=== PATIENT | male | born 1945 | race Caucasian/White ===

== ENCOUNTER 2017-01-14 11:37 | Inpatient (IN) | payer MEDICARE, OTHER ==
[2017-01-14] MEDS ORDERED: NORMAL SALINE 1000 ML 1,000 ML IV ONE ×2 (12:06→17:11)
[2017-01-14] MEDS ORDERED: ACETAMINOPHEN 325 MG TABLET PO ONE (12:06)
[2017-01-14 12:24] LABS: ABSOLUTE LYMPHOCYTES (AUTO) 0.9 10^3/uL (0.5-4.7); ABSOLUTE MONOCYTES (AUTO) 0.7 10^3/uL (0.1-1.4); ABSOLUTE NEUT (AUTO) 5.5 10^3/uL (1.7-8.2); BASOPHILS % (AUTO) 0.3 % (0-2); EOSINOPHILS % (AUTO) 0.1 % (0-6); HEMATOCRIT 40.1 % (37.9-51.0); HEMOGLOBIN 13.3 g/dL (13.5-17.0); HGB HCT DIFFERENCE -0.2; MEAN CORPUSCULAR HEMOGLOBIN 30.3 pg (27.0-33.4); MEAN CORPUSCULAR VOLUME 92 fl (80-97); RED BLOOD COUNT 4.37 10^6/uL (4.35-5.55); RED CELL DISTRIBUTION WIDTH 13.9 % (11.5-14.0); SEGMENTED NEUTROPHILS % (AUTO) 76.6 % (42-78); VENOUS BLOOD BASE EXCESS -7.7 mmol/L; VENOUS BLOOD HCO3 19.5 mmol/L (20-32); VENOUS BLOOD PCO2 45.8 mmHg (35-63); VENOUS BLOOD PH 7.25 (7.30-7.42); WHITE BLOOD COUNT 7.2 10^3/uL (4.0-10.5)
[2017-01-14 12:33] LABS: PROTHROMBIN TIME 12.4 SEC (11.4-15.4)
[2017-01-14 12:45] LABS: ALANINE AMINOTRANSFERASE 27 U/L (21-72); ALBUMIN 3.8 g/dL (3.5-5.0); ALKALINE PHOSPHATASE 69 U/L (38-126); ANION GAP 15 (5-19); ASPARTATE AMINO TRANSFERASE 22 U/L (17-59); BILIRUBIN,DIRECT 0.3 mg/dL (0.0-0.4); BILIRUBIN,TOTAL 0.4 mg/dL (0.2-1.3); BLOOD UREA NITROGEN 46 mg/dL (7-20); CARBON DIOXIDE 20 mmol/L (22-30); CHLORIDE 108 mmol/L (98-107); CREATININE RESULT 2.56 mg/dL (0.52-1.25); GLUCOSE 131 mg/dL (75-110); POTASSIUM 4.7 mmol/L (3.6-5.0); SODIUM 142.8 mmol/L (137-145); TOTAL PROTEIN 6.5 g/dL (6.3-8.2)
--- NOTE | 2017-01-14 13:35 | EKG REPORT ---
SEVERITY:- ABNORMAL ECG - ATRIAL-SENSED VENTRICULAR-PACED RHYTHM : Confirmed by: Reid Klein MD 14-Jan-2017 13:34:06
[2017-01-14 14:24] LABS: APPEARANCE,URINE CLOUDY; BILIRUBIN,URINE NEGATIVE (NEGATIVE); GLUCOSE, URINE NEGATIVE (NEGATIVE); KETONES,URINE NEGATIVE (NEGATIVE); LEUKOCYTE ESTERASE,URINE NEGATIVE (NEGATIVE); NITRITE,URINE NEGATIVE (NEGATIVE); PROTEIN,URINE 30 mg/dL (NEGATIVE); URINE SPECIFIC GRAVITY 1.018; UROBILINOGEN,URINE NEGATIVE mg/dL (<2.0)
--- NOTE | 2017-01-14 15:38 | ER Document Report ---
ED General - General Mode of Arrival: Ambulatory Information source: Patient TRAVEL OUTSIDE OF THE [place] IN LAST 30 DAYS: No - HPI Patient complains to provider of: Generalized weakness, cough, and fever Onset: Last week Associated symptoms: Other - see notes above <ROSALEE SCALES - Last Filed: 01/14/17 18:39> <VLADISLAV EPPERSON - Last Filed: 01/14/17 20:32> - General Chief Complaint: Diarrhea Stated Complaint: FEVER Notes: 71 year old male with history of sudden cardiac (2004; with a pacemaker and defibrillator) presents to the ED complaining of generalized weakness, nonproductive cough, fever (101F 2 nights ago), dehydration, loss of appetite, and diarrhea (no blood) which started 3 days ago. Patient reports that he has chronic diarrhea, but it has been worsening over the last 4 or 5 days. Patient denies any abdominal pain, chest pain, or shortness of breath. Patient denies history of IBS or diabetes mellitus. states that she has been recovering from bronchitis and an upper respiratory infection and is concerned that the patient might of caught something from her. Patient's quarter section ironer is Dr. Klein and primary care provider is Fatou Pastor at [facility]. (ROSALEE SCALES) - Related Data Allergies/Adverse Reactions: Tetanus Vaccines and Toxoid [Tetanus] Allergy (Intermediate, Verified 01/14/17 11:49) Home Medications: Current Home Medications Allopurinol [Allopurinol] 100 mg PO DAILY 01/14/17 [History] Carvedilol [Carvedilol] 25 mg PO BIDBS 01/14/17 [History] Digoxin [Digitek] 125 mcg PO DAILY 01/14/17 [History] Lisinopril [Lisinopril] 10 mg PO DAILY 01/14/17 [History] Rosuvastatin Calcium [Crestor 10 mg Tablet] 10 mg PO DAILY 01/14/17 [History] Spironolactone [Spironolactone] 25 mg PO DAILY 01/14/17 [History] Past Medical History - General Information source: Patient - Social History Smoking Status: Current Every Day Smoker Chew tobacco use (# tins/day): No Frequency of alcohol use: None Drug Abuse: None Family History: Reviewed & Not Pertinent Patient has suicidal ideation: No Patient has homicidal ideation: No - Past Medical History Cardiac Medical History: Reports: Other - Sudden cardiac in 2004 ( implanted pacemaker/defibrillator) Past Surgical History: Reports: Hx Cardiac Surgery - pacemaker placement - Immunizations Hx Diphtheria, Pertussis, Tetanus Vaccination: No Hx Pneumococcal Vaccination: 09/16/10 <ROSALEE SCALES - Last Filed: 01/14/17 18:39> Review of Systems - Review of Systems Constitutional: See HPI, Fever, Weakness EENT: No symptoms reported Cardiovascular: No symptoms reported. denies: Chest pain Respiratory: See HPI, Cough. denies: Short of breath Gastrointestinal: No symptoms reported, Diarrhea, Poor appetite. denies: Abdominal pain Genitourinary: No symptoms reported Male Genitourinary: No symptoms reported Musculoskeletal: No symptoms reported Skin: No symptoms reported Hematologic/Lymphatic: No symptoms reported Neurological/Psychological: No symptoms reported <ROSALEE SCALES - Last Filed: 01/14/17 18:39> Physical Exam <LOYDAWILBURROSALEE - Last Filed: 01/14/17 18:39> <VLADISLAV EPPERSON - Last Filed: 01/14/17 20:32> - Vital signs Vitals: Temp Pulse Resp BP Pulse Ox 97.5 F 57 L 16 77/30 L 97 01/14/17 11:53 01/14/17 11:53 01/14/17 11:53 01/14/17 11:53 01/14/17 11:53 - Notes Notes: GENERAL: Alert, interacts well. No acute distress. HEAD: Normocephalic, atraumatic. EYES: Pupils equal, round, and reactive to light. Extraocular movements intact. ENT: Oral mucosa moist, tongue midline. NECK: Full range of motion. Supple. Trachea midline. LUNGS: Clear to auscultation bilaterally, no wheezes, rales, or rhonchi. No respiratory distress. Patient has a wet sounding cough upon examination. HEART: Regular rate and rhythm. No murmurs, gallops, or rubs. Defibrillator in good position. ABDOMEN: Soft, non-tender. Non-distended. Bowel sounds present in all 4 quadrants. RECTAL: No blood, melena, or stool is visualized. EXTREMITIES: Moves all 4 extremities spontaneously. No edema, radial and dorsalis pedis pulses 2/4 bilaterally. No cyanosis. NEUROLOGICAL: Alert and oriented x3. Normal speech. PSYCH: Normal affect, normal mood. SKIN: Warm, dry, normal turgor. No rashes or lesions noted. (ROSALEE SCALSE) Course - Laboratory Result Diagrams: 01/14/17 12:05 01/14/17 12:05 - Diagnostic Test Radiology reviewed: Image reviewed, Reports reviewed - Chest x-ray impression: Somewhat limited study. No acute radiographic finding in the chest. - Consults Dr. Wooten Time consulted: 18:14 <ROSALEE SCALES - Last Filed: 01/14/17 18:39> - Laboratory Result Diagrams: 01/14/17 12:05 01/14/17 12:05 <VLADISLAV EPPERSON - Last Filed: 01/14/17 20:32> - Re-evaluation Re-evalutation: 01/14/17 20:31 CBC does not show any leukocytosis, coags normal, venous blood gas is acidotic with pH of 7.25, this appears metabolic in nature with a bicarbonate of 19.5, likely due to GI losses, chemistries show acute renal failure with BUN of 46 and creatinine of 2.56, for this reason I have requested admission for this patient by the hospitalist, patient does not have any elevated lactic acid, no evidence of sepsis at this time, urinalysis grossly unremarkable, Hemoccult is negative, C. difficile toxin is negative, flu a and B are negative, CT scan of the abdomen and pelvis show renal mass which was discussed with family and they understand the need to follow up as an outpatient for further imaging to rule out malignancy, it also shows an old aortic dissection that appears to of calcified and is healing well, there is a small amount of edema and swelling of the intestine that may represent inflammatory bowel disease. At present I feel the patient's symptoms are most likely coming from an infectious diarrhea etiology, patient will be treated with Peggy and Lee, Dr. Wooten the hospitalist has agreed to admit the patient to her service for dehydration causing acute renal failure and ongoing diarrhea persisted in the emergency department. Patient has responded nicely to 2 L of fluid and his hypotension is resolving. (VLADISLAV EPPERSON) - Vital Signs Vital signs: Temp Pulse Resp BP Pulse Ox 97.5 F 57 L 12 93/50 L 94 01/14/17 11:53 01/14/17 11:53 01/14/17 15:00 01/14/17 14:51 01/14/17 15:00 - Laboratory Laboratory results interpreted by me: 01/14/17 01/14/17 01/14/17 12:05 12:05 12:05 Hgb 13.3 L Plt Count 133 L VBG pH 7.25 L VBG HCO3 19.5 L Chloride 108 H Carbon Dioxide 20 L BUN 46 H Creatinine 2.56 H Est GFR ( Amer) 30 L Est GFR (Non-Af Amer) 25 L Glucose 131 H Urine Protein 01/14/17 14:15 Hgb Plt Count VBG pH VBG HCO3 Chloride Carbon Dioxide BUN Creatinine Est GFR ( Amer) Est GFR (Non-Af Amer) Glucose Urine Protein 30 H - Consults Dr. Wooten Reason for consultation: 01/14/17 18:14 Patient was discussed with Dr. Wooten and states she will admit the patient to IMCU and to start him on Cipro and Flagyl. (ROSALEE SCALES) Critical Care Note <ROSALEE SCALES - Last Filed: 01/14/17 18:39> - Critical Care Note Total time excluding time spent on procedures (mins): 40 <VLADISLAV EPPERSON - Last Filed: 01/14/17 20:32> - Critical Care Note Comments: Addressing the severe persistent hypotension. (VLADISLAV EPPERSON) Discharge <ROSALEE SCALES - Last Filed: 01/14/17 18:39> - Discharge Admitting Provider: Anitraist - Je Unit Admitted: IMCU <VLADISLAV EPPERSON - Last Filed: 01/14/17 20:32> - Discharge Clinical Impression: Dehydration Diarrhea Qualifiers: Diarrhea type: presumed infectious Qualified Code(s): A09 - Infectious gastroenteritis and colitis, unspecified Acute renal failure Qualifiers: Acute renal failure type: unspecified Qualified Code(s): N17.9 - Acute kidney failure, unspecified Condition: Serious Disposition: ADMITTED INPATIENT Scribe Attestation: 01/14/17 20:32 I personally performed the services described in the documentation, reviewed and edited the documentation which was dictated to the scribe in my presence, and it accurately records my words and actions. (VLADISLAV EPPERSON) Scribe Documentation - Scribe Written by Scribe:: Moraima Trevizo, 01/14/2017 1546 acting as scribe for :: Kloswaldoek <ROSALEE SCALES - Last Filed: 01/14/17 18:39>
[2017-01-14] MEDS ORDERED: METRONIDAZOLE 500 MG/NS RTU 100 ML IV ONE (18:19)
[2017-01-14] MEDS ORDERED: NORMAL SALINE 1000 ML 1,000 ML IV PRN (18:43)
[2017-01-14] MEDS ORDERED: ONDANSETRON HCL INJ/PF 4 MG/2 ML SDV IV PRN (18:44)
--- NOTE | 2017-01-14 18:55 | PDOC H&P ---
History of Present Illness Admission Date/PCP: 01/14/2017 Manisha ZARAGOZA Patient complains of: Diarrhea History of Present Illness: EASTON BALTAZAR is a 71 year old male with history of sudden cardiac (2004; with a pacemaker and defibrillator) presents to the ED complaining of generalized weakness, nonproductive cough, fever (101F 2 nights ago), dehydration, loss of appetite, and diarrhea (no blood ) which started 3 days ago. Patient reports that he has chronic diarrhea, but it has been worsening over the last 4 or 5 days. Patient denies any abdominal pain, chest pain, or shortness of breath. Patient denies history of IBS or diabetes mellitus. states that she has been recovering from bronchitis and an upper respiratory infection and is concerned that the patient might of caught something from her. Patient's computer language coder is Dr. Klein and primary care provider is Fatou Pastor at [facility]. Upon evaluation in the emergency room patient was diagnosed of acute colitis and acute renal failure he was treated with IV fluids Cipro and Flagyl and was subsequently admitted to [facility] for further evaluation and care Past Medical History Cardiac Medical History: Reports: Congestive Heart Failure - Cardiomyopathy status post defibrillator Patient is treated by , Coronary Artery Disease , Other - Sudden cardiac in 2004 (implanted pacemaker/defibrillator) Denies: Myocardial Infarction, Hypertension Pulmonary Medical History: Denies: Asthma, Bronchitis, Chronic Obstructive Pulmonary Disease (COPD), Pneumonia Neurological Medical History: Denies: Seizures Musculoskeltal Medical History: Denies: Arthritis Hematology: Denies: Anemia Past Surgical History Past Surgical History: Reports: Other - Pacer defibrillator implanted in 2004 Social History Information Source: Patient Lives with: Family Smoking Status: Current Every Day Smoker Frequency of Alcohol Use: None Hx Recreational Drug Use: No Drugs: None - Advance Directive Resuscitation Status: Full Code Surrogate healthcare decision maker:: His Frannie Family History Family History: CAD Parental Family History Reviewed: Yes Children Family History Reviewed: Yes Sibling(s) Family History Reviewed.: Yes Medication/Allergy Home Medications: Allopurinol [Allopurinol] 100 mg PO DAILY 01/14/17 Carvedilol [Carvedilol] 25 mg PO BIDBS 01/14/17 Digoxin [Digitek] 125 mcg PO DAILY 01/14/17 Lisinopril [Lisinopril] 10 mg PO DAILY 01/14/17 Rosuvastatin Calcium [Crestor 10 mg Tablet] 10 mg PO DAILY 01/14/17 Spironolactone [Spironolactone] 25 mg PO DAILY 01/14/17 Allergies/Adverse Reactions: Tetanus Vaccines and Toxoid [Tetanus] Allergy (Intermediate, Verified 01/14/17 11:49) Review of Systems Constitutional: PRESENT: chills, fever(s), weight loss. ABSENT: headache(s), weight gain Eyes: ABSENT: visual disturbances Ears: ABSENT: hearing changes Cardiovascular: ABSENT: chest pain, dyspnea on exertion, edema, orthropnea, palpitations Respiratory: ABSENT: cough, hemoptysis Gastrointestinal: PRESENT: as per HPI, abdominal pain, diarrhea, nausea. ABSENT : constipation, hematemesis, hematochezia, vomiting Genitourinary: ABSENT: dysuria, hematuria Musculoskeletal: ABSENT: joint swelling Integumentary: ABSENT: rash, wounds Neurological: ABSENT: abnormal gait, abnormal speech, confusion, dizziness, focal weakness, syncope Psychiatric: ABSENT: anxiety, depression, homidical ideation, suicidal ideation Endocrine: ABSENT: cold intolerance, heat intolerance, polydipsia, polyuria Hematologic/Lymphatic: ABSENT: easy bleeding, easy bruising Physical Exam Vital Signs: Temp Pulse Resp BP Pulse Ox 97.5 F 57 L 12 93/50 L 94 01/14/17 11:53 01/14/17 11:53 01/14/17 15:00 01/14/17 14:51 01/14/17 15:00 Intake & Output 01/13/17 01/14/17 01/15/17 00:59 00:59 00:59 Weight 70.7 kg General appearance: PRESENT: no acute distress, thin Head exam: PRESENT: atraumatic, normocephalic Eye exam: PRESENT: conjunctiva pink, EOMI, PERRLA. ABSENT: scleral icterus Neck exam: ABSENT: carotid bruit, JVD, lymphadenopathy, thyromegaly Respiratory exam: PRESENT: clear to auscultation jewel. ABSENT: rales, rhonchi, wheezes Cardiovascular exam: PRESENT: RRR. ABSENT: diastolic murmur, rubs, systolic murmur GI/Abdominal exam: PRESENT: normal bowel sounds, soft. ABSENT: distended, guarding, mass, organolmegaly, rebound, tenderness Extremities exam: PRESENT: full ROM. ABSENT: calf tenderness, clubbing, pedal edema Neurological exam: PRESENT: alert, awake, oriented to person, oriented to place , oriented to time, oriented to situation, CN II-XII grossly intact. ABSENT: motor sensory deficit Psychiatric exam: PRESENT: appropriate affect Skin exam: PRESENT: dry, intact, warm. ABSENT: cyanosis, rash Results Laboratory Results: 01/14/17 12:05 01/14/17 12:05 01/14/17 01/14/17 01/14/17 12:05 12:05 12:05 WBC 7.2 RBC 4.37 Hgb 13.3 L Hct 40.1 MCV 92 MCH 30.3 MCHC 33.0 RDW 13.9 Plt Count 133 L Seg Neutrophils % 76.6 Lymphocytes % 13.0 Monocytes % 10.0 Eosinophils % 0.1 Basophils % 0.3 Absolute Neutrophils 5.5 Absolute Lymphocytes 0.9 Absolute Monocytes 0.7 Absolute Eosinophils 0.0 Absolute Basophils 0.0 VBG pH 7.25 L VBG pCO2 45.8 VBG HCO3 19.5 L VBG Base Excess -7.7 Sodium 142.8 Potassium 4.7 Chloride 108 H Carbon Dioxide 20 L Anion Gap 15 BUN 46 H Creatinine 2.56 H Est GFR ( Amer) 30 L Est GFR (Non-Af Amer) 25 L Glucose 131 H Lactic Acid Calcium 9.0 Total Bilirubin 0.4 AST 22 ALT 27 Alkaline Phosphatase 69 Total Protein 6.5 Albumin 3.8 Lipase Urine Color Urine Appearance Urine pH Ur Specific Moodus Urine Protein Urine Glucose (UA) Urine Ketones Urine Blood Urine Nitrite Ur Leukocyte Esterase Urine WBC (Auto) Urine RBC (Auto) Stool Occult Blood 01/14/17 01/14/17 01/14/17 12:05 12:20 14:15 WBC RBC Hgb Hct MCV MCH MCHC RDW Plt Count Seg Neutrophils % Lymphocytes % Monocytes % Eosinophils % Basophils % Absolute Neutrophils Absolute Lymphocytes Absolute Monocytes Absolute Eosinophils Absolute Basophils VBG pH VBG pCO2 VBG HCO3 VBG Base Excess Sodium Potassium Chloride Carbon Dioxide Anion Gap BUN Creatinine Est GFR ( Amer) Est GFR (Non-Af Amer) Glucose Lactic Acid Calcium Total Bilirubin AST ALT Alkaline Phosphatase Total Protein Albumin Lipase 70.0 Urine Color YELLOW Urine Appearance CLOUDY Urine pH 5.0 Ur Specific Moodus 1.018 Urine Protein 30 H Urine Glucose (UA) NEGATIVE Urine Ketones NEGATIVE Urine Blood NEGATIVE Urine Nitrite NEGATIVE Ur Leukocyte Esterase NEGATIVE Urine WBC (Auto) 8 Urine RBC (Auto) 1 Stool Occult Blood NEGATIVE 01/14/17 15:23 WBC RBC Hgb Hct MCV MCH MCHC RDW Plt Count Seg Neutrophils % Lymphocytes % Monocytes % Eosinophils % Basophils % Absolute Neutrophils Absolute Lymphocytes Absolute Monocytes Absolute Eosinophils Absolute Basophils VBG pH VBG pCO2 VBG HCO3 VBG Base Excess Sodium Potassium Chloride Carbon Dioxide Anion Gap BUN Creatinine Est GFR ( Amer) Est GFR (Non-Af Amer) Glucose Lactic Acid 0.8 Calcium Total Bilirubin AST ALT Alkaline Phosphatase Total Protein Albumin Lipase Urine Color Urine Appearance Urine pH Ur Specific Moodus Urine Protein Urine Glucose (UA) Urine Ketones Urine Blood Urine Nitrite Ur Leukocyte Esterase Urine WBC (Auto) Urine RBC (Auto) Stool Occult Blood Impressions: Abdomen/Pelvis CT 01/14/17 00:00 IMPRESSION: 1. There are nonobstructing intrarenal calculi bilaterally. 2. There is a 25 mm rounded mass contiguous with the medial aspect of the left kidney as described. This could represent an exophytic hyperdense cyst. Consider ultrasound to see whether this is cystic. Consider contrast CT to determine enhancement characteristics. 3. There is small amount hyperdense material the distal small bowel that causes minimal artifact. 4. There appears to be mild fatty infiltration of the ileocecal valve. Alternatively, inflammatory bowel disease might have an appearance such as this. Clinical correlation is recommended Chest X-Ray 01/14/17 12:06 IMPRESSION: Somewhat limited study as noted above. NO ACUTE RADIOGRAPHIC FINDING IN THE CHEST. Assessment & Plan - Diagnosis (1) Cardiomyopathy Qualifiers: Cardiomyopathy type: unspecified Qualified Code(s): I42.9 - Cardiomyopathy, unspecified Is this a current diagnosis for this admission?: YesPlan: Patient is status post pacer defibrillator Left ventricular ejection fraction is unknown We will request transcript of recent echocardiogram from Dr. Klein's office (2) Acute renal failure Qualifiers: Acute renal failure type: unspecified Qualified Code(s): N17.9 - Acute kidney failure, unspecified Is this a current diagnosis for this admission?: YesPlan: Likely secondary to dehydration There was no hydronephrosis (4) Diarrhea Qualifiers: Diarrhea type: presumed infectious Qualified Code(s): A09 - Infectious gastroenteritis and colitis, unspecified Is this a current diagnosis for this admission?: YesPlan: we will treat with Cipro and Flagyl C. difficile toxin and culture of the stools were requested - Time Time Spent: Greater than 70 Minutes - Inpatient Certification Based on my medical assessment, after consideration of the patient's comorbidities, presenting symptoms, or acuity I expect that the services needed warrant INPATIENT care.: Yes I certify that my determination is in accordance with my understanding of Medicare's requirements for reasonable and necessary INPATIENT services [42 CFR 412.3e].: Yes
[2017-01-14] MEDS ORDERED: CIPROFLOXACIN 400 MG/D5W RTU 200 ML IV SCH (19:00)
[2017-01-14] MEDS: ATORVASTATIN CALCIUM 20 MG TABLET PO SCH (21:53)
[2017-01-14] MEDS: HEPARIN SOD (PORCINE) 5,000 UNIT/ML 1 ML SYRINGE SUBCUT SCH (21:53)
[2017-01-14] MEDS ORDERED: CIPROFLOXACIN 200 MG/D5W RTU 100 ML IV SCH (22:00)
[2017-01-15] MEDS ORDERED: METRONIDAZOLE 500 MG/NS RTU 100 ML IV SCH
[2017-01-15 05:04] LABS: ABSOLUTE MONOCYTES (AUTO) 0.6 10^3/uL (0.1-1.4); ABSOLUTE NEUT (AUTO) 3.6 10^3/uL (1.7-8.2); BASOPHILS % (AUTO) 0.3 % (0-2); EOSINOPHILS % (AUTO) 0.5 % (0-6); HEMATOCRIT 36.5 % (37.9-51.0); HEMOGLOBIN 12.5 g/dL (13.5-17.0); LYMPHOCYTES % (AUTO) 19.2 % (13-45); MEAN CORPUSCULAR HEMOGLOBIN 30.8 pg (27.0-33.4); MEAN CORPUSCULAR HGB CONC 34.1 g/dL (32.0-36.0); MEAN CORPUSCULAR VOLUME 90 fl (80-97); MONOCYTES % (AUTO) 10.9 % (3-13); RED BLOOD COUNT 4.05 10^6/uL (4.35-5.55); SEGMENTED NEUTROPHILS % (AUTO) 69.1 % (42-78); WHITE BLOOD COUNT 5.2 10^3/uL (4.0-10.5)
[2017-01-15 05:23] LABS: ALANINE AMINOTRANSFERASE 28 U/L (21-72); ALBUMIN 3.1 g/dL (3.5-5.0); ALKALINE PHOSPHATASE 58 U/L (38-126); ANION GAP 12 (5-19); ASPARTATE AMINO TRANSFERASE 19 U/L (17-59); BILIRUBIN,DIRECT 0.3 mg/dL (0.0-0.4); BILIRUBIN,TOTAL 0.4 mg/dL (0.2-1.3); BLOOD UREA NITROGEN 42 mg/dL (7-20); CALCIUM 8.5 mg/dL (8.4-10.2); CARBON DIOXIDE 16 mmol/L (22-30); CHLORIDE 114 mmol/L (98-107); CREATININE RESULT 1.57 mg/dL (0.52-1.25); DIGOXIN 0.81 ng/mL (0.8-2.0); GLUCOSE 81 mg/dL (75-110); POTASSIUM 4.8 mmol/L (3.6-5.0); SODIUM 141.7 mmol/L (137-145); TOTAL PROTEIN 5.8 g/dL (6.3-8.2)
--- NOTE | 2017-01-15 09:04 | PDOC PROGRESS REPORT ---
Subjective Progress Note for:: 01/15/17 Subjective:: Poor appetite. Tolerating liquid diet. Wants to advance to solid food. No fever , vomiting, chest pain. Physical Exam Vital Signs: Temp Pulse Resp BP Pulse Ox 97.8 F 66 18 92/53 L 93 01/15/17 03:43 01/15/17 07:00 01/15/17 03:43 01/15/17 04:00 01/15/17 03:43 Intake & Output 01/14/17 01/15/17 01/16/17 06:59 06:59 06:59 Intake Total 750 Balance 750 Weight 71.1 kg General appearance: PRESENT: no acute distress, well-developed, well-nourished Head exam: PRESENT: atraumatic, normocephalic Eye exam: PRESENT: conjunctiva pink, EOMI, PERRLA. ABSENT: scleral icterus Ear exam: PRESENT: normal external ear exam Mouth exam: PRESENT: moist, tongue midline Neck exam: ABSENT: carotid bruit, JVD, lymphadenopathy, thyromegaly Respiratory exam: PRESENT: clear to auscultation jewel. ABSENT: rales, rhonchi, wheezes Cardiovascular exam: PRESENT: RRR. ABSENT: diastolic murmur, rubs, systolic murmur Pulses: PRESENT: normal dorsalis pedis pul Vascular exam: PRESENT: normal capillary refill GI/Abdominal exam: PRESENT: normal bowel sounds, soft. ABSENT: distended, guarding, mass, organolmegaly, rebound, tenderness Rectal exam: PRESENT: deferred Extremities exam: PRESENT: full ROM. ABSENT: calf tenderness, clubbing, pedal edema Neurological exam: PRESENT: alert, awake, oriented to person, oriented to place , oriented to time, oriented to situation, CN II-XII grossly intact. ABSENT: motor sensory deficit Psychiatric exam: PRESENT: appropriate affect, normal mood. ABSENT: homicidal ideation, suicidal ideation Skin exam: PRESENT: dry, intact, warm. ABSENT: cyanosis, rash Results Laboratory Results: 01/15/17 03:55 01/15/17 03:55 01/15/17 01/15/17 03:55 03:55 WBC 5.2 RBC 4.05 L Hgb 12.5 L Hct 36.5 L MCV 90 MCH 30.8 MCHC 34.1 RDW 14.0 Plt Count 105 L Seg Neutrophils % 69.1 Lymphocytes % 19.2 Monocytes % 10.9 Eosinophils % 0.5 Basophils % 0.3 Absolute Neutrophils 3.6 Absolute Lymphocytes 1.0 Absolute Monocytes 0.6 Absolute Eosinophils 0.0 Absolute Basophils 0.0 Sodium 141.7 Potassium 4.8 Chloride 114 H Carbon Dioxide 16 L Anion Gap 12 BUN 42 H Creatinine 1.57 H Est GFR ( Amer) 53 L Est GFR (Non-Af Amer) 44 L Glucose 81 Calcium 8.5 Total Bilirubin 0.4 AST 19 ALT 28 Alkaline Phosphatase 58 Total Protein 5.8 L Albumin 3.1 L Impressions: Abdomen/Pelvis CT 01/14/17 00:00 IMPRESSION: 1. There are nonobstructing intrarenal calculi bilaterally. 2. There is a 25 mm rounded mass contiguous with the medial aspect of the left kidney as described. This could represent an exophytic hyperdense cyst. Consider ultrasound to see whether this is cystic. Consider contrast CT to determine enhancement characteristics. 3. There is small amount hyperdense material the distal small bowel that causes minimal artifact. 4. There appears to be mild fatty infiltration of the ileocecal valve. Alternatively, inflammatory bowel disease might have an appearance such as this. Clinical correlation is recommended Chest X-Ray 01/14/17 12:06 IMPRESSION: Somewhat limited study as noted above. NO ACUTE RADIOGRAPHIC FINDING IN THE CHEST. Assessment & Plan - Diagnosis (1) Acute renal failure Qualifiers: Acute renal failure type: unspecified Qualified Code(s): N17.9 - Acute kidney failure, unspecified Is this a current diagnosis for this admission?: YesPlan: Improving. Decrease IVF rate due to CHF. Continue to hold lisinopril, aldactone , digoxin. (2) Dehydration Is this a current diagnosis for this admission?: Yes (3) AAA (abdominal aortic aneurysm) Is this a current diagnosis for this admission?: YesPlan: outpatient vascular surgery evaluation (4) Colitis Is this a current diagnosis for this admission?: YesPlan: Cipro/Flagyl. Cdiff negative. (5) Cardiomyopathy Qualifiers: Cardiomyopathy type: unspecified Qualified Code(s): I42.9 - Cardiomyopathy, unspecified Is this a current diagnosis for this admission?: YesPlan: Followed by Dr. Klein as outpatient. H/o AICD due to remote sudden cardiac . - Time Time Spent with patient: 35 or more minutes Anticipated discharge: Home Within: within 24 hours
[2017-01-15] MEDS: ALLOPURINOL 100 MG TABLET PO SCH (09:09)
[2017-01-15] MEDS ORDERED: PANTOPRAZOLE SODIUM 40 MG VIAL IV SCH (10:00)
--- NOTE | 2017-01-15 12:36 | Physician Advisory Note ---
Physician Advisor ProgressNote .: Pursuant to the plan for [facility], I have reviewed the medical record for this patient. Physician Advisor Statement: Dx.s to consider documenting if agree: 1. "Acute metabolic acidosis due to GI losses" Status: 71yo Medicare pt w/CMP, chronic ___ type CHF, evidence of old aortic dissection by CT, chronic diarrhea, remote past sudden cardiac 2004 -> AICD, currently on Dig, Coreg, lisinopril, aldactone, Crestor, Allopurinol - came in 5/1 pm w/generalized weakness, cough, worsened diarrhea x4-5 days, decreased appetite x3 days, fever 2 nights before, feeling dehydrated. Initial BP 77/30 (w/HR only 57 due to effects of Coreg), did respond to 2L IVF to BP 93/50 w/HR 57 still. WBC 7.2, Hgb 13.3, plts 133, bicarb 20, BUN 46, Cr 2.56, pH 7.25, VBG bicarb 19.5, no previous labs to compare. Hemoccult neg, C.diff neg. CT w/renal mass , fatty infilt of ileocecal valve vs IBD. Attending held lisinopril, aldactone, & dig, & started NS @125, IV cipro/flagyl/ PPI. After 1 MN of hospital care & monitoring, pt still w/poor appetite, though wanting to advance diet. MODESTO improving but suspecting not yet back to baseline , especially since Acute Metabolic Acidosis appears worse today. Still relatively hypotensive, still needing IVF - tho' decreasing rate due to risks of putting pt into acute on chr ___ CHF from them. BP still not sufficient to restart dig, renal & fluid status not yet sufficient to restart aldactone & lisinopril. Not yet safe for d/c home. Appropriate for Inpt status. CK
[2017-01-15] MEDS: HEPARIN SOD (PORCINE) 5,000 UNIT/ML 1 ML SYRINGE SUBCUT SCH ×3 (13:23→21:05)
[2017-01-15] MEDS: ATORVASTATIN CALCIUM 20 MG TABLET PO SCH (21:05)
[2017-01-15] MEDS: NORMAL SALINE 1000 ML 1,000 ML IV PRN (22:32)
[2017-01-16] MEDS: HEPARIN SOD (PORCINE) 5,000 UNIT/ML 1 ML SYRINGE SUBCUT SCH (05:06)
[2017-01-16 05:17] LABS: ABSOLUTE LYMPHOCYTES (AUTO) 1.5 10^3/uL (0.5-4.7); ABSOLUTE MONOCYTES (AUTO) 0.7 10^3/uL (0.1-1.4); BASOPHILS % (AUTO) 0.2 % (0-2); HEMATOCRIT 35.8 % (37.9-51.0); HEMOGLOBIN 12.3 g/dL (13.5-17.0); HGB HCT DIFFERENCE 1.1; LYMPHOCYTES % (AUTO) 35.3 % (13-45); MEAN CORPUSCULAR HEMOGLOBIN 30.9 pg (27.0-33.4); MEAN CORPUSCULAR HGB CONC 34.4 g/dL (32.0-36.0); MEAN CORPUSCULAR VOLUME 90 fl (80-97); MONOCYTES % (AUTO) 15.9 % (3-13); RED BLOOD COUNT 3.98 10^6/uL (4.35-5.55); RED CELL DISTRIBUTION WIDTH 14.1 % (11.5-14.0); SEGMENTED NEUTROPHILS % (AUTO) 47.6 % (42-78); WHITE BLOOD COUNT 4.3 10^3/uL (4.0-10.5)
[2017-01-16 05:52] LABS: ANION GAP 12 (5-19); BLOOD UREA NITROGEN 18 mg/dL (7-20); CALCIUM 8.8 mg/dL (8.4-10.2); CARBON DIOXIDE 19 mmol/L (22-30); CHLORIDE 114 mmol/L (98-107); CREATININE RESULT 0.87 mg/dL (0.52-1.25); GLUCOSE 86 mg/dL (75-110); POTASSIUM 4.7 mmol/L (3.6-5.0); SODIUM 145.3 mmol/L (137-145)
[2017-01-16] MEDS: ALLOPURINOL 100 MG TABLET PO SCH (08:54)
[2017-01-16] MEDS: NORMAL SALINE 1000 ML 1,000 ML IV PRN (08:55)
[2017-01-16 12:55] VITALS: BP 92/53
--- NOTE | 2017-01-16 14:45 | PDOC DISCHARGE SUMMARY ---
General - Admit/Disc Date/PCP Admission Date/Primary Care Provider: 01/14/17 18:44 Discharge Date: 01/16/17 - Discharge Diagnosis (1) Acute renal failure Is this a current diagnosis for this admission?: Yes (2) Cardiomyopathy Is this a current diagnosis for this admission?: Yes (3) Dehydration Is this a current diagnosis for this admission?: Yes (4) AAA (abdominal aortic aneurysm) Is this a current diagnosis for this admission?: Yes (5) Colitis Is this a current diagnosis for this admission?: Yes - Additional Information Resuscitation Status: Full Code Discharge Diet: Cardiac Discharge Activity: Activity As Tolerated Home Medications: Allopurinol 100 mg PO DAILY 01/14/17 Rosuvastatin Calcium [Crestor 10 mg Tablet] 10 mg PO DAILY 01/14/17 Spironolactone 25 mg PO DAILY 01/14/17 Carvedilol [Coreg 12.5 mg Tablet] 12.5 mg PO Q12 #60 tablet 01/16/17 Lisinopril 5 mg PO DAILY #30 tablet 01/16/17 History of Present Illness Patient complains of: Diarrhea History of Present Illness: EASTON BALTAZAR is a 71 year old male with history of sudden cardiac (2004; with a pacemaker and defibrillator) presents to the ED complaining of generalized weakness, nonproductive cough, fever (101F 2 nights ago), dehydration, loss of appetite, and diarrhea (no blood) which started 3 days ago. Patient reports that he has chronic diarrhea, but it has been worsening over the last 4 or 5 days. Patient denies any abdominal pain, chest pain, or shortness of breath. Patient denies history of IBS or diabetes mellitus. states that she has been recovering from bronchitis and an upper respiratory infection and is concerned that the patient might of caught something from her. Patient's auto porter is Dr. Klein and primary care provider is Fatou Pastor at [facility]. Upon evaluation in the emergency room patient was diagnosed of acute colitis and acute renal failure he was treated with IV fluids Cipro and Flagyl and was subsequently admitted to [facility] for further evaluation and care Hospital Course Hospital Course: Patient presented with diarrhea and was found to have profound dehydration and acute renal failure. Acute renal failure was likely is associated with diuretic and NIRALI inhibitor use in the setting of dehydration. Medications were held on admission and patient was treated with IV fluids. Kidney function normalized over course of admission. Patient states that he's been having diarrhea for years and he feels like this may be medication related. He has had prior colonoscopies by Dr. Morris of GI but not recently. C. difficile stool was negative. CT scan of the abdomen and pelvis showed no acute process however patient did have a 3.8 cm infrarenal abdominal aortic aneurysm. After discussion with patient's auto porter Dr. Klein patient will be taken off of digoxin secondary to possible association with diarrhea. I will decrease Coreg and lisinopril doses secondary to low blood pressures and resting bradycardia. Patient's auto porter was quite insistent the patient remained on Coreg, lisinopril, and Aldactone for cardiomyopathy. Cardiology cannot recall what patient's most recent EF was. Per hospital records patient had MUGA scan 2011 that had a EF 61%. With regard to abdominal aortic aneurysm patient will be referred to vascular surgery Dr. Hogan in [facility]. With regard to chronic diarrhea patient will be advised to follow-up with Dr. Morris of GI. We will discontinue digoxin for now. Physical Exam Vital Signs: Temp Pulse Resp BP Pulse Ox 97.8 F 58 L 18 92/53 L 100 01/16/17 12:50 01/16/17 12:50 01/16/17 12:50 01/16/17 12:50 01/16/17 12:50 Intake & Output 01/15/17 01/16/17 01/17/17 06:59 06:59 06:59 Intake Total 750 3151 Balance 750 3151 Weight 71.1 kg 70 kg GENERAL: No acute distress HEENT: Conjunctiva clear, nonicteric, moist mucous membranes, no JVD, midline trachea RESPIRATORY: Clear to auscultation bilaterally, no wheezes, no rhonchi CARDIAC: Regular rate and rhythm, no murmurs/gallops/rubs ABDOMEN: Soft, nondistended, nontender, positive bowel sounds, no rebound, no guarding EXTREMETIES: No edema, cyanosis, clubbing NEUROLOGIC: Alert, oriented to person/place/time, CN's grossly intact, no focal deficits SKIN: No rash, wounds PSYCH: Normal mood, normal affect Results Laboratory Results: 01/16/17 04:09 01/16/17 04:09 01/16/17 01/16/17 04:09 04:09 WBC 4.3 RBC 3.98 L Hgb 12.3 L Hct 35.8 L MCV 90 MCH 30.9 MCHC 34.4 RDW 14.1 H Plt Count 111 L Seg Neutrophils % 47.6 Lymphocytes % 35.3 Monocytes % 15.9 H Eosinophils % 1.0 Basophils % 0.2 Absolute Neutrophils 2.0 Absolute Lymphocytes 1.5 Absolute Monocytes 0.7 Absolute Eosinophils 0.0 Absolute Basophils 0.0 Sodium 145.3 H Potassium 4.7 Chloride 114 H Carbon Dioxide 19 L Anion Gap 12 BUN 18 Creatinine 0.87 Est GFR ( Amer) > 60 Est GFR (Non-Af Amer) > 60 Glucose 86 Calcium 8.8 Impressions: Abdomen/Pelvis CT 01/14/17 00:00 IMPRESSION: 1. There are nonobstructing intrarenal calculi bilaterally. 2. There is a 25 mm rounded mass contiguous with the medial aspect of the left kidney as described. This could represent an exophytic hyperdense cyst. Consider ultrasound to see whether this is cystic. Consider contrast CT to determine enhancement characteristics. 3. There is small amount hyperdense material the distal small bowel that causes minimal artifact. 4. There appears to be mild fatty infiltration of the ileocecal valve. Alternatively, inflammatory bowel disease might have an appearance such as this. Clinical correlation is recommended Chest X-Ray 01/14/17 12:06 IMPRESSION: Somewhat limited study as noted above. NO ACUTE RADIOGRAPHIC FINDING IN THE CHEST. Qualifiers PATEINT BEING DISCHARGED WITH ANY OF THE FOLLOWING DIAGNOSIS?: No Plan Time Spent: Less than 30 Minutes
== END 2017-01-16 14:17 | disposition home or self-care (01) | DRG 684 ==
LOC: ER 11:37 → EH 18:44 → UNDOADMIN 18:55 → EH 18:55 → 3N 23:45
PROVIDERS: ADMIT Emergency Medicine; ATTEND Emergency Medicine
DX: N17.9 Acute kidney failure, unspecified (principal); K52.9 Noninfective gastroenteritis and colitis, unspecified; E86.0 Dehydration; I71.4 Abdominal aortic aneurysm, without rupture; I51.7 Cardiomegaly; R00.1 Bradycardia, unspecified; T50.1X5A Adverse effect of loop [high-ceiling] diuretics, initial encounter; I50.9 Heart failure, unspecified; F17.210 Nicotine dependence, cigarettes, uncomplicated; N28.89 Other specified disorders of kidney and ureter; Z86.74 Personal history of sudden cardiac arrest; Z95.810 Presence of automatic (implantable) cardiac defibrillator; Z82.49 Family history of ischemic heart disease and other diseases of the circulatory system; Z88.7 Allergy status to serum and vaccine; Z79.899 Other long term (current) drug therapy
CPT/HCPCS: 36415; 71010; 74176; 80048; 80053; 80162; 81001; 82272; 82803; 83605; 83690; 85025; 85610; 87040; 87086; 87493; 87804; 93005; 93010; 99291; J0744; J7030

== ENCOUNTER → 2017-03-01 | Outpatient (CLI) | payer MEDICARE, OTHER ==
--- NOTE | 2017-03-01 12:14 | RADIOLOGY REPORT (SQ) ---
EXAM DESCRIPTION: CT ABD/PELVIS WITH IV ONLY COMPLETED DATE/TIME: 03/01/2017 8:24 am REASON FOR STUDY: RENAL LESION (D49.519) D49.519 NEOPLASM OF UNSPECIFIED BEHAVIOR OF UNSPECIFIED KI DN COMPARISON: CT abdomen pelvis without contrast 01/14/2017 TECHNIQUE: CT scan of the abdomen and pelvis performed using helical scanning technique with dynamic intravenous contrast injection. No oral contrast. Images reviewed with lung, soft tissue, and bone windows. Reconstructed coronal and sagittal MPR images reviewed. Delayed images for evaluation of the urinary system also acquired. All images stored on PACS. All CT scanners at this facility use dose modulation, iterative reconstruction, and/or weight based d osing when appropriate to reduce radiation dose to as low as reasonably achievable (ALARA). [facility]: Dose Right [facility]: CareDose [facility]: Dose Right [facility]: Teradose 4D [facility]: [employer]ion [employer] CONTRAST TYPE AND DOSE: contrast/concentration: Isovue 370.00 mg/ml; Total Contrast Delivered: 81.0 ml; Total Saline Delivered: 68.0 ml RENAL FUNCTION: Creatinine 0.8 RADIATION DOSE: Up-to-date CT equipment and radiation dose reduction techniques were employed. CTDIv ol: 6.9 - 8.2 mGy. DLP: 760 mGy-cm.. LIMITATIONS: None. FINDINGS: LOWER CHEST: Small hiatal hernia. Pacemaker. No cardiomegaly. Lung bases are clear. LIVER: Normal size. No masses or dilated ducts. Benign geographic contrast enhancement in the left l obe liver SPLEEN: Normal size. No focal lesions. PANCREAS: No masses. No significant calcifications. No adjacent inflammation or peripancreatic fluid collections. Pancreatic duct not dilated. GALLBLADDER: No identified stones by CT criteria. No inflammatory changes to suggest cholecystitis. ADRENAL GLANDS: No significant masses or asymmetry. RIGHT KIDNEY AND URETER: No solid masses. 2 cm cyst right lower pole kidney. Tiny nonobstructive le ss than 5 mm mid and lower pole intrarenal nonobstructive stones. No calculi in the right ureter. No hydronephrosis or hydroureter. LEFT KIDNEY AND URETER: No solid masses. 2.5 cm nonenhancing slightly hyperdense cyst in the left po sterior mid to upper pole kidney. 3.5 cm hyperdense nonenhancing cyst in the inferior posterior left kidney. Multiple less than 5 mm upper, mid, and lower pole intrarenal nonobstructive stones. No ca lculi in the left ureter. No hydronephrosis or hydroureter. AORTA AND VESSELS: On the leftward lateral aspect of the infrarenal abdominal aorta, a saccular aneur ysm is present measuring 2.8 cm craniocaudad by 22.7 cm AP x 1.5 cm transverse. A 2nd, smaller saccu lar aneurysm off the rightward aspect of the infrarenal abdominal aorta is present measuring 14 x 9 m m in size. These are best shown on coronal image 49. Heavy atherosclerotic calcifications with grea ter than 50% stenosis at the origin of the right renal artery and superior mesenteric artery. RETROP ERITONEUM: No retroperitoneal adenopathy, hemorrhage or masses. BOWEL AND PERITONEAL CAVITY: There is acute diverticulitis in the left lower quadrant along the dista l descending/ proximal sigmoid colon. There is a short segment of wall thickening, luminal narrowing , and surrounding inflammatory change best shown on axial images 63-71, and coronal images 38 through 46. This report was called to Dr. Cortez's office, reported to his nurse in [place] APPENDIX: Normal. PELVIS: No mass or free fluid. Normal bladder. ABDOMINAL WALL: Small fat containing umbilical hernia. BONES: No significant or acute findings. OTHER: No other significant finding. IMPRESSION: Left-sided nonenhancing mildly hyperdense renal cortical cysts. Bilateral intrarenal nonobstructive calculi. No ureteral stones. Acute diverticulitis without CT evidence of abscess or free air, along the distal descending/ proxima l sigmoid colon. TECHNICAL DOCUMENTATION: JOB ID: [id number] Quality ID # [id number]: Final reports with documentation of one or more dose reduction techniques (e.g., Au tomated exposure control, adjustment of the mA and/or kV according to patient size, use of iterative reconstruction technique) 2010 [employer]- All Rights Reserved
== END ==
LOC: RAD 07:37
PROVIDERS: ATTEND Urology
DX: D49.519 Neoplasm of unspecified behavior of unspecified kidney (principal)
CPT/HCPCS: 74177; 82565

== ENCOUNTER → 2020-08-01 | Outpatient (CLI) | payer MEDICARE, OTHER | LOC: OD 11:14 | PROVIDERS: ATTEND Physician Assistant | DX: I50.22 Chronic systolic (congestive) heart failure (principal) | CPT/HCPCS: 36415; 80162 ==

== ENCOUNTER → 2020-09-29 | Outpatient (CLI) | payer MEDICARE, OTHER ==
--- NOTE | 2020-09-29 16:36 | RADIOLOGY REPORT (SQ) ---
EXAM DESCRIPTION: CHEST 2 VIEWS IMAGES COMPLETED DATE/TIME: 09/29/2020 4:25 pm REASON FOR STUDY: (R05)COUGH COMPARISON: None. EXAM PARAMETERS: NUMBER OF VIEWS: two views TECHNIQUE: Digital Frontal and Lateral radiographic views of the chest acquired. RADIATION DOSE: NA LIMITATIONS: none FINDINGS: LUNGS AND PLEURA: No opacities, masses or pneumothorax. No pleural effusion. MEDIASTINUM AND HILAR STRUCTURES: No masses or contour abnormalities. HEART AND VASCULAR STRUCTURES: Heart normal size. No evidence for failure. BONES: No acute findings. HARDWARE: Left-sided triple lead defibrillator. OTHER: No other significant finding. IMPRESSION: NO ACUTE RADIOGRAPHIC FINDING IN THE CHEST. TECHNICAL DOCUMENTATION: JOB ID: [id number] 2010 [employer]- All Rights Reserved Reading location - IP/workstation name: [email or web address]
== END ==
LOC: RAD 15:51
PROVIDERS: ATTEND Nurse Practitioner Family
DX: R05 Cough (principal)
CPT/HCPCS: 71046